=== PATIENT | female | born 1995 | race African-American/Black ===

== ENCOUNTER 2020-08-06 13:22 | Emergency (ER) | payer OTHER ==
[~2020-08-06] VITALS: Ht 180.3 cm; Wt 108.9 kg
[2020-08-06 14:30] VITALS: BP 119/78
[2020-08-06] MEDS ORDERED: ROBAXIN-750750 MG PO (14:31)
[2020-08-06] MEDS ORDERED: LIDODERM700 M1 TOPIC (14:31)
[2020-08-06] MEDS ORDERED: TYLENOL EXTRA500 MG ORAL (14:31)
[2020-08-06] MEDS ORDERED: IBUPROFEN600 M1 ORAL (14:31)
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
--- NOTE | 2020-08-06 15:16 | Diagnostic Imaging Report ---
Indication: Back pain Technique: XRAY T Spine 2v Comparison: None Findings: Bony mineralization within normal limits. No acute thoracic vertebral body fractures appreciated. Vertebral body heights are maintained; there is no evidence of compression fracture. No evidence of spondylolisthesis. Limited evaluation of the lungs due to low lung volumes but imaged lungs grossly without focal consolidation or appreciable pneumothorax. No opaque foreign body. Impression: No evidence of acute fracture or traumatic malalignment.
[2020-08-06 15:28] VITALS: BP 119/78
--- NOTE | 2020-08-06 15:29 | NUR ---
x-rays completed discharged home with instruction and rx follow up with pmd
== END 2020-08-06 15:30 | disposition home or self-care (01) ==
LOC: EMR 14:40
DX: S29.012A Strain of muscle and tendon of back wall of thorax, initial encounter (principal); V43.52XA Car driver injured in collision with other type car in traffic accident, initial encounter; Y92.411 Interstate highway as the place of occurrence of the external cause
CPT/HCPCS: 72070; Z7502; 99283